=== PATIENT | female | born 1990 | race Caucasian/White ===

== ENCOUNTER 2019-08-21 07:42 | Inpatient (IN) ==
[2019-08-21] MEDS ORDERED: OXYTOCIN 30 UNITS/500 ML BAG IV PRN ×2 (07:47→07:53)
--- NOTE | 2019-08-21 07:50 | History & Physical Report ---
Date of Service August 21, 2019 Assessment & Plan (1) Elective induction of labor planned: 28 yo F at 40.0 weeks here for elective induction of labor. - [place] bulb removed this morning by Dr. Phelps, pt now 4/80/-2; EFW 6-7 lbs. - Will start oxytocin @ 1mU/min and increase by 2 every 30 minutes until contractions every 2-3 minutes. - Continue to monitor for cervical change. History of Present Illness Primary Care Provider: Sweta SYasmine Alatorre is a 28 yo F ; dating parameters 40.0weeks by LMP; here for elective induction of labor; no complications this . Attended OB appointments with [facility]. Confirms intermittent contractions, confirms movement; no vaginal fluid loss or vaginal bleeding. Labor plan includes Labs (Serology 02/11/2019; CBC 08/21/2019): Blood type: A+ Antibody screen: negative Hgb: 10.0 Hct: 31.6% WBC: 6.38 Plt: 148 Rubella status: immune VDLR/RPR: nonreactive Gonorrhea: negative Chlamydia: negative HIV: negative GBS: negative HbSAg: negative Glucose tolerance test x2: negative No Hx of abnormal PAPs. Last done July 2018. Allergies Allergy/AdvReac Type Severity Reaction Status Date / Time No Known Drug Allergies Allergy Verified 08/14/19 09:32 Home Medications Home Medications Medication Instructions Recorded Confirmed Type prenat.vits,camila,olo-[id number] 1 tab PO DAILY 02/25/19 08/21/19 History ferrous sulfate [iron] 325 mg PO DAILY 08/21/19 08/21/19 History Patient History Medical History False labor after 37 completed weeks of gestation History of varicella Surgical History S/P ACL repair Family History Mother Breast cancer Social History (Updated 03/03/19 @ 12:25 by Bambi Dwyer) Preferred Language: Martiniquais Communication Ability: Effective Beliefs That Will Affect Care: None marital status: Current Living Situation: Spouse Current Living Situation Comment: [facility] Other Information That Helps Us Care for You: No Feels Safe at Home: Yes Safety Concerns: Feels Safe At This Time Smoking Status: Never smoker Hx Alcohol Use: No Hx Substance Use: No Review of Systems Constitutional: denies fever, chills, sweats, headache Respiratory: denies SOB, difficulty breathing Cardiac: denies CP, chest palpitations, chest pressure Breast: denies breast pain : denies dysuria Physical Exam Physical Exam: General: patient is alert and oriented, in NAD Cardiac: +S1/S2, no murmurs rubs or gallops Respiratory: lungs CTA b/l, anteriorly and posteriorly, no wheezes rales or rhonchi, no increased work of breathing, symmetric chest rise, no respiratory distress Abdomen: soft, NT, +bowel sounds Uterus: uterine fundus firm Lower Extremities: no LE edema or swelling, no deep calf pain, Bebe's sign negative b/l Genitourinary: Manual OB Exam: + cervical dilation 4 cm, + cervical effacement 80% and + station -2 OB Exam Monitor Tracing: + external FHT monitor used, + external uterine monitor used, + category I and + normal FHT variability Results & Data Vital Signs (Past 12 Hours) Vital Signs Pulse BP 08/21/19 07:44 88 116/72 Laboratory Results Laboratory Results - last 24 hr 08/21/19 07:58 WBC 6.38 RBC 3.65 L Hgb 10.0 L Hct 31.6 L MCV 86.6 MCH 27.4 MCHC Pending RDW Std Deviation 56.2 H RDW Coeff of Sushil 18.0 H Plt Count 148 MPV 11.7 H Medications Administered Current Medications Lactated Ringer's (Lr) 1,000 mls @ 125 mls/hr IV .Q8H PRN; Protocol PRN Reason: L&D Protocol Stop: 08/23/19 07:46 Last Admin: 08/21/19 08:04 Dose: 125 mls/hr Documented by: Oxytocin (Pitocin) 30 units in 500 mls @ 333.333 mls/hr IV .Q1H30M PRN; Protocol PRN Reason: Bleeding Control Stop: 09/20/19 07:46 Oxytocin (Pitocin) 30 units in 500 mls @ 1 mls/hr IV .Q24H PRN; Protocol PRN Reason: Labor Induction/Augmentation Stop: 08/23/19 07:52 Monitoring External Monitor HR 140s with good variability Supervising Physician Co-Signing Physician Notes Resident Physician Supervision Note: I interviewed and examined the patient. Discussed with Dr. Zuniga and agree with findings and plan as documented in the note. Any exceptions or clarificati ons are listed here: I have seen this patient in office yesterday and wanted elective induction. exam above done by Dr. Phelps. pitocin induction. Documented By: Slime Woodard MD, FACOG Coding Level of Care Code None Diagnoses Elective induction of labor planned
[2019-08-21] MEDS: LACTATED RINGER'S 1,000 ML IV PRN ×3 (08:04→19:14)
[2019-08-21 08:11] LABS: Hematocrit (blood only) 31.6 % (37-47); Mean Corpuscular Hemoglobin 27.4 pg (25-34); Mean Corpuscular Volume 86.6 fL (80-100); Mean Platelet Volume 11.7 fL (7.4-10.4); Platelet Count 148 K/uL (130-400); RDW Standard Deviation 56.2 fL (36.4-46.3); Red Blood Count 3.65 M/uL (4.2-5.4); White Blood Count 6.38 K/uL (4.8-10.8)
[2019-08-21 09:19] LABS: Mean Corpuscular Hgb Conc 31.6 g/dL (32-36)
--- NOTE | 2019-08-21 10:28 | Labor Progress Brief Note ---
Date of Service August 21, 2019 Subjective Reason For Note: Routine Evaluation Pt here for elective induction. Pitocin infusing. Does not have pain. Assessment & Plan (1) Elective induction of labor planned: cont with pitocin, will see how arom augments labor pattern. fhts categ 1 Physical Exam Constitutional: WD/WN, vitals as above Neurologic: grossly normal Psychiatric: A+Ox3, euthymic affect Genitourinary: Manual OB Exam: + cervical dilation 4 cm, + cervical effacement 50%, + station -2 and + amniotic fluid (AROM) clear OB Exam Monitor Tracing: + external FHT monitor used (135 mod variability, reactive), + external uterine monitor used (q4-5 pit at 5), + category I and + normal FHT variability Results & Data Vital Signs (Past 12 Hours) Vital Signs Temp Pulse Resp BP 08/21/19 09:56 74 100/63 08/21/19 08:41 87 99/62 L 08/21/19 08:08 97.7 F 88 20 116/72 08/21/19 07:44 88 116/72 Coding Level of Care Code None Diagnoses Elective induction of labor planned
[2019-08-21] MEDS ORDERED: fentaNYL citrate 100 MCG/2 ML VIAL ONE (12:42)
[2019-08-21] MEDS ORDERED: ePHEDrine sulfate 50 MG/ML AMP ONE (12:42)
[2019-08-21] MEDS ORDERED: BUPIVACAINE 0.25% 30 ML VIAL ONE (12:42)
[2019-08-21] MEDS ORDERED: fentaNYL 2MCG/ML ROPIV 1.25MG/ML 100 ML BAG EPI ONE (12:43)
[2019-08-21] MEDS ORDERED: DiphenhydrAMINE HCL 50 MG/ML VIAL IV PRN (12:54)
[2019-08-21] MEDS ORDERED: NALBUPHINE HCL INJ 10 MG/ML AMP IV PRN (12:54)
[2019-08-21] MEDS ORDERED: NALOXONE HCL 1 MG in SODIUM CHLORIDE 0.9% 1000ML 1,000 ML IV PRN (12:54)
[2019-08-21] MEDS ORDERED: ePHEDrine sulfate 50 MG/ML AMP IV PRN (12:54)
[2019-08-21] MEDS ORDERED: ONDANSETRON INJ 2 MG/ML 2 ML VIAL IV PRN (12:54)
[2019-08-21] MEDS ORDERED: NALOXONE HCL 0.4 MG/1 ML VIAL/CARP IV PRN (12:54)
--- NOTE | 2019-08-21 13:00 | Anesthesiology Consultation ---
Date of Service August 21, 2019 Assessment & Plan Chart Review Chart Review: Patient NOT seen in Pre Admission Testing and Acceptable Risk for Labor Epidural Consults Requested none ASA ASA2 Proposed Anesthesia Anesthesia Type: Labor Epidural and CSE Risk / Benefits Reviewed With: PT / POA / Parent / Guardian, Accepts Plan and Informed Consent Obtained History Height/Weight Height: 5 ft Weight: 67.132 kg Allergies Allergy/AdvReac Type Severity Reaction Status Date / Time No Known Drug Allergies Allergy Verified 08/14/19 09:32 Medications Home Medications Medication Instructions Recorded Confirmed Last Taken prenat.vits,camila,[id number] 1 tab PO DAILY 02/25/19 08/21/19 08/21/19 06:00 ferrous sulfate [iron] 325 mg PO DAILY 08/21/19 08/21/19 08/21/19 06:00 Active Medications Generic Name Dose Route Start Last Admin Trade Name Freq PRN Reason Stop Dose Admin Lactated Ringer's 1,000 mls @ 125 mls/hr 08/21/19 07:47 08/21/19 12:35 Lr IV 08/23/19 07:46 999 mls/hr .Q8H PRN Infusion L&D Protocol Protocol Oxytocin 30 units in 500 mls @ 13 mls/hr 08/21/19 07:53 08/21/19 12:15 Pitocin IV 08/23/19 07:52 0.78 units/hr .Q24H PRN 13 mls/hr Labor Induction/Augmentation Titration Protocol 0.78 UNITS/HR NPO Date Last Intake of Fluids: 08/21/19 Time Last Intake of Fluids: 11:00 Date Last Intake of Solids: 08/21/19 Time Last Intake of Solids: 08:00 Past Medical History Medical History False labor after 37 completed weeks of gestation History of varicella Exercise / Class Metabolic Activity II 4-5 Yardwork/Stairs/Walk up hill Past Family History Family History Mother Breast cancer Past Surgical History Surgical History S/P ACL repair Past Anesthesia History No Hx of Anesthesia Complications and No Family Hx of Anesthesia Complications History of PONV No Hx of PONV and No Hx of Motion Sickness Social History Smoking Status: Never smoker Hx Alcohol Use: No Hx Substance Use: No Review of Systems no chest pain or sob Physical Exam Vital Signs Last Vital Signs Temp 36.9 C 08/21/19 11:21 Pulse 95 H 08/21/19 12:54 Resp 20 08/21/19 11:21 BP 120/74 08/21/19 12:49 Pulse Ox 100 08/21/19 12:54 ENMT Mouth: no TMJ abnormality Thyromental Distance: > or= 3.5 Finger Breadths Mallampati Class: II Neck normal visual inspection Respiratory normal respiratory effort Auscultation: lungs clear to auscultation bilaterally Cardiovascular Rate/Rhythm: regular rate and regular rhythm Musculoskeletal Spine: normal cervical ROM Neurologic moves all extremities Psychiatric Orientation: alert and oriented x 3 Testing Laboratory Results 08/21/19 07:58
[2019-08-21] MEDS: fentaNYL 2MCG/ML ROPIV 1.25MG/ML 100 ML BAG EPI PRN ×2 (16:50→19:54)
[2019-08-21] MEDS ORDERED: ACETAMINOPHEN 325 MG TAB PO PRN (19:33)
--- NOTE | 2019-08-21 19:36 | Labor Progress Brief Note ---
Date of Service August 21, 2019 Subjective Reason For Note: Routine Evaluation has some lower pressure but not rectal pressure. Assessment & Plan (1) Elective induction of labor planned: c/w pitocin, good cx change. fhts categ 1. Physical Exam Constitutional: WD/WN, vitals as above Psychiatric: A+Ox3, euthymic affect Genitourinary: Manual OB Exam: + cervical dilation (8), + cervical effacement 100% and + station 0 OB Exam Monitor Tracing: + external FHT monitor used (135 mod variability), + external uterine monitor used (q2-3), + category I and + normal FHT variability Results & Data Vital Signs (Past 12 Hours) Vital Signs Temp Pulse Resp BP Pulse Ox 08/21/19 19:33 95 H 124/71 08/21/19 19:29 106 H 93 08/21/19 19:24 112 H 97 08/21/19 19:19 100 H 100 08/21/19 19:18 107 H 127/66 08/21/19 19:14 84 100 08/21/19 19:09 89 100 08/21/19 19:04 99 H 104/67 100 08/21/19 19:01 94 H 90 08/21/19 18:59 84 100 08/21/19 18:54 82 100 08/21/19 18:51 84 93 08/21/19 18:49 76 100 08/21/19 18:48 73 104/69 08/21/19 18:44 83 100 08/21/19 18:39 75 100 08/21/19 18:34 104 H 100 08/21/19 18:33 99 H 91 08/21/19 18:29 91 H 100 08/21/19 18:25 103 H 89 L 08/21/19 18:24 106 H 99 08/21/19 18:19 82 100 08/21/19 18:17 80 102/67 08/21/19 18:14 91 H 100 08/21/19 18:09 73 100 08/21/19 18:04 70 100 08/21/19 18:02 77 99/63 L 08/21/19 17:59 93 H 100 08/21/19 17:54 76 100 08/21/19 17:49 97 H 100 08/21/19 17:47 71 96/56 L 08/21/19 17:44 74 100 01/24/20 17:39 70 99 08/21/19 17:34 68 99 08/21/19 17:33 67 102/59 L 08/21/19 17:29 77 99 08/21/19 17:24 104 H 99 08/21/19 17:19 68 97/56 L 100 08/21/19 17:14 83 100 08/21/19 17:09 75 100 08/21/19 17:04 69 99 08/21/19 17:02 85 96/54 L 08/21/19 16:59 97 H 98 08/21/19 16:54 79 99 08/21/19 16:49 95 H 100 08/21/19 16:48 78 98/57 L 08/21/19 16:44 66 99 08/21/19 16:39 83 99 08/21/19 16:34 86 100 08/21/19 16:32 72 101/57 L 08/21/19 16:29 76 100 08/21/19 16:24 69 100 08/21/19 16:19 83 104/57 L 100 08/21/19 16:14 99 H 99 08/21/19 16:09 74 100 08/21/19 16:04 94 H 99 08/21/19 16:03 74 99/55 L 08/21/19 15:59 93 H 100 08/21/19 15:54 83 100 08/21/19 15:49 94 H 100 08/21/19 15:48 88 20 113/70 08/21/19 15:44 82 100 08/21/19 15:39 94 H 100 08/21/19 15:34 93 H 100 08/21/19 15:32 83 107/61 08/21/19 15:29 79 100 08/21/19 15:24 78 100 08/21/19 15:19 80 100 08/21/19 15:17 97.9 F 84 20 105/56 L 08/21/19 15:14 73 100 08/21/19 15:09 68 100 08/21/19 15:04 71 100 08/21/19 14:59 67 100 08/21/19 14:54 65 100 08/21/19 14:49 69 99 08/21/19 14:44 77 99 08/21/19 14:39 72 100 08/21/19 14:34 88 97 08/21/19 14:33 71 20 92/55 L 08/21/19 14:29 67 97 08/21/19 14:24 62 98 08/21/19 14:19 62 98 08/21/19 14:18 66 93/51 L 08/21/19 14:14 61 98 08/21/19 14:09 75 97 08/21/19 14:04 70 98 08/21/19 14:03 74 102/57 L 08/21/19 13:59 81 98 08/21/19 13:54 77 97 08/21/19 13:49 77 98 08/21/19 13:44 84 98 08/21/19 13:39 76 97 08/21/19 13:34 83 97 08/21/19 13:32 81 20 102/56 L 08/21/19 13:31 90 181/109 H 08/21/19 13:29 72 96 08/21/19 13:24 83 97 08/21/19 13:22 82 94/53 L 08/21/19 13:19 85 97 08/21/19 13:15 81 98/61 L 08/21/19 13:14 82 104/62 99 08/21/19 13:12 98 H 114/60 08/21/19 13:10 93 H 114/63 08/21/19 13:09 98.4 F 91 H 20 100 08/21/19 12:54 95 H 100 08/21/19 12:49 79 120/74 100 08/21/19 11:21 98.4 F 75 20 112/69 08/21/19 10:43 67 106/63 08/21/19 09:56 74 100/63 08/21/19 08:41 87 99/62 L 08/21/19 08:08 97.7 F 88 20 116/72 08/21/19 07:44 88 116/72 Coding Level of Care Code None Diagnoses Elective induction of labor planned
--- NOTE | 2019-08-22 00:49 | Delivery Summary ---
Supervising Physician Co-Signing Physician Notes The patient dilated to complete and pushed to deliver a viable male infant Apgars 3, 6, 8 via over midline episiotomy. heart tones were persistently suspected to be in the 50s x 2 minutes and that is why episiotomy performed. After cephalic delivered, anterior shoulder was delivered and loose nuchal x 1 reduced. Mouth and nose bulb suctioned at perineum. Remaining shoulder and body delivered with ease with gentle downward traction. Infant was not vigorous and was pale therefore cord rapidly doubly clamped and cut and taken to radiant warmer. Placenta delivered spontaneously and intact, three- vessel cord. Hemostasis achieved with dilute pitocin and uterine massage and drainage of the bladder for approximately 100 cc under sterile conditions. Episiotomy repaired in usual fashion with 3-0 vicryl. Cervix and sulci intact. EBL 300 cc. Mother and baby stable recovery. Cord blood and cord gases obtained. Vaginal Delivery Summary Date of Service August 22, 2019
[2019-08-22] MEDS ORDERED: OXYCODONE/ACETAMINOPHEN 5mg/325mg TAB PO PRN (00:54)
[2019-08-22] MEDS ORDERED: OXYTOCIN 30 UNITS/500 ML BAG IV PRN (00:54)
[2019-08-22] MEDS ORDERED: ACETAMINOPHEN 325 MG TAB PO PRN (00:54)
[2019-08-22] MEDS ORDERED: OXYTOCIN 20 UNITS in LACTATED RINGER'S 1,000 ML IV SCH (01:00)
[2019-08-22 01:03] LABS: Base Excess Cord Venous Blood -6.3 mEq/L (-7.7-1.9); Cord Venous Blood HCO3 19 mmol/L (18.4-26.8); Cord Venous Blood PCO2 38 mmHg (30.4-57.2); Cord Venous Blood PO2 34 mmHg (14.1-43.3); Cord Venous Blood pH 7.32 (7.20-7.44)
[2019-08-22 01:11] LABS: Base Excess Cord Arterial Bld -13.4 mEq/L (-9-1.8); CO2 Cord Arterial Blood 67 mmHg (39.1-73.5); HCO3 Cord Arterial Blood 18 mmol/L (19.7-28.5); Oxygen Sat Cord Arterial Blood < 60.0 % (<60); PO2 Cord Arterial Blood 23 mmHg (4.1-31.7); pH Cord Arterial Blood 7.05 (7.1-7.38)
[2019-08-22] MEDS ORDERED: BENZOCAINE 20% AER SPR 82.5 GM CAN EXT PRN (01:21)
[2019-08-22] MEDS ORDERED: DIPHTHERIA/TETANUS/PERTUSSIS 0.5 ML SYR/VIAL IM ONE (01:21)
[2019-08-22] MEDS ORDERED: SUPERCREAM 0.870% 15 GM JAR EXT PRN (01:21)
[2019-08-22] MEDS: IBUPROFEN 600 MG TAB PO PRN ×3 (02:32→18:04)
--- NOTE | 2019-08-22 06:06 | Anesthesia Procedure Note ---
Date of Service August 22, 2019 Anesthesia Post Epidural Note Vital Signs Vital Signs: Temp Pulse Resp BP Pulse Ox 36.7 C 93 H 20 112/68 89 L 08/22/19 02:17 08/22/19 02:53 08/22/19 02:17 08/22/19 02:53 08/22/19 00:36 Pain Intensity Episiotomy/Laceration: Pain Intensity: 4 Notes Mental Status: alert / awake / arousable and participated in evaluation Nausea / Vomiting: adequately controlled Pain: adequately controlled Airway Patency, RR, SpO2: stable & adequate BP & HR: stable & adequate Hydration State: stable & adequate Neuraxial Anesthesia: was administered and sensory block is resolving Anesthetic Complications: no major complications apparent and Pt Satisfied with anesthetic care Epidural: Removed without complications and With tip intact
--- NOTE | 2019-08-22 07:35 | Obstetrical Progress Note ---
Date of Service August 22, 2019 Assessment & Plan (1) Normal delivery at term: stable, routine pp care. rh pos, . Day #:: 1 Subjective Ambulation: ambulating normally Voiding: no voiding problems Diet Tolerance:: regular diet Lochia:: Moderate Feeding Type:: breast feeding bottom sore, no other pain issues. . not much appetite yesterday. Physical Exam Constitutional WD/WN, vitals as above Respiratory normal respiratory effort, lungs clear to auscultation Cardiovascular Rate/Rhythm: regular rate and regular rhythm Gastrointestinal (Abdomen) Percussion/Palpation: abdomen soft; abdomen nontender FF at u Neurologic grossly normal Psychiatric A+Ox3, euthymic affect Results & Data Vital Signs (Past 12 Hours) Vital Signs Temp Pulse Pulse Resp BP BP Pulse Ox 08/22/19 03:00 98.4 F 92 H 92 H 18 112/68 112/68 08/22/19 02:53 93 H 112/68 08/22/19 02:17 98.1 F 102 H 20 113/72 08/22/19 02:02 97 H 111/68 08/22/19 01:47 102 H 16 117/75 08/22/19 01:32 93 H 18 116/70 08/22/19 01:17 109 H 16 120/73 08/22/19 01:02 97 H 16 117/73 08/22/19 00:47 107 H 18 113/76 08/22/19 00:36 98.2 F 110 H 20 126/76 89 L 08/22/19 00:34 116 H 98 08/22/19 00:29 114 H 99 08/22/19 00:24 105 H 100 08/22/19 00:19 111 H 98 08/22/19 00:14 138 H 97 08/22/19 00:12 151 H 92 08/22/19 00:09 123 H 97 08/22/19 00:06 128 H 92 08/22/19 00:04 135 H 97 08/22/19 00:00 20 08/21/19 23:59 145 H 96 08/21/19 23:54 123 H 98 08/21/19 23:49 141 H 98 08/21/19 23:48 126 H 124/76 08/21/19 23:44 132 H 97 08/21/19 23:39 145 H 98 08/21/19 23:37 146 H 92 08/21/19 23:34 125 H 110/61 98 08/21/19 23:30 20 08/21/19 23:29 117 H 99 08/21/19 23:25 122 H 87 L 08/21/19 23:24 123 H 98 08/21/19 23:19 120 H 108/64 99 08/21/19 23:14 140 H 98 08/21/19 23:09 136 H 98 08/21/19 23:05 98.4 F 08/21/19 23:04 139 H 98 08/21/19 23:03 117 H 110/65 08/21/19 23:00 18 08/21/19 22:59 156 H 98 08/21/19 22:54 135 H 99 08/21/19 22:49 129 H 100 08/21/19 22:48 112 H 114/66 08/21/19 22:44 145 H 98 08/21/19 22:39 130 H 98 08/21/19 22:35 130 H 117/63 08/21/19 22:34 150 H 99 08/21/19 22:30 18 08/21/19 22:29 158 H 100 08/21/19 22:24 120 H 98 08/21/19 22:19 137 H 99 08/21/19 22:17 123 H 119/62 08/21/19 22:14 139 H 99 08/21/19 22:09 155 H 100 08/21/19 22:04 136 H 121/61 100 08/21/19 22:00 18 08/21/19 21:59 131 H 100 08/21/19 21:54 123 H 100 08/21/19 21:49 81 106/67 98 08/21/19 21:44 86 98 08/21/19 21:39 90 97 08/21/19 21:34 93 H 99 08/21/19 21:32 95 H 111/68 08/21/19 21:30 18 08/21/19 21:29 94 H 100 08/21/19 21:24 105 H 100 08/21/19 21:20 98.6 F 08/21/19 21:19 102 H 98 08/21/19 21:17 95 H 107/60 08/21/19 21:14 90 98 08/21/19 21:09 94 H 99 01/24/20 21:04 90 97 08/21/19 21:03 88 109/60 08/21/19 21:00 18 08/21/19 20:59 102 H 98 08/21/19 20:54 106 H 98 08/21/19 20:49 89 99 08/21/19 20:47 101 H 105/62 08/21/19 20:44 90 99 08/21/19 20:39 87 99 08/21/19 20:34 89 99 08/21/19 20:33 86 105/63 08/21/19 20:30 18 08/21/19 20:29 86 98 08/21/19 20:24 82 99 08/21/19 20:19 93 H 99 08/21/19 20:17 90 106/59 L 08/21/19 20:14 94 H 99 08/21/19 20:12 103 H 92 08/21/19 20:09 94 H 100 08/21/19 20:04 97 H 99 08/21/19 20:03 83 113/59 L 08/21/19 20:02 91 H 88 L 08/21/19 20:00 18 08/21/19 19:59 101 H 100 08/21/19 19:54 115 H 99 08/21/19 19:49 87 100 08/21/19 19:48 83 107/65 08/21/19 19:44 89 99 08/21/19 19:39 103 H 99 08/21/19 19:34 133 H 100
[2019-08-22] MEDS: DOCUSATE SODIUM 100 MG CAP PO SCH ×2 (09:23→20:40)
[2019-08-23] MEDS: DOCUSATE SODIUM 100 MG CAP PO SCH ×2 (08:23→21:17)
[2019-08-23] MEDS: IBUPROFEN 600 MG TAB PO PRN ×4 (08:24→19:48)
--- NOTE | 2019-08-23 08:42 | Obstetrical Progress Note ---
Date of Service August 23, 2019 Assessment & Plan (1) Elective induction of labor planned: - doing well - patient desires d/c - instructions given - f/u in 6 weeks for pp check Subjective Ambulation: ambulating normally Voiding: no voiding problems Feeding Type:: bottle feeding Physical Exam Constitutional WD/WN, vitals as above Gastrointestinal (Abdomen) Fundus firm below umbilicus Musculoskeletal No deep calf tenderness Results & Data Vital Signs (Past 12 Hours) Vital Signs Temp Pulse Resp BP 08/23/19 00:35 97.5 F L 94 H 16 101/62
[2019-08-23] MEDS: HYDROCORTISONE ACETATE 25 MG SUPP PR PRN (21:24)
[2019-08-23 22:45] VITALS: O2SAT 98
--- NOTE | 2019-08-24 07:43 | Obstetrical Progress Note ---
Date of Service August 24, 2019 * Patient was initially discharged on the evening of 08/23/19. Due to nursery recommendations, she was advised to stay until the 08/24/19. Please use HPI, ROS, EXAM and Assessment and Plan from 08/23/19 for discharge information.* Supervising Physician Co-Signing Physician Notes Resident Physician Supervision Note: I was present with Dr. Sandra during the history and exam. I discussed the case with the resident and agree with the findings and plan as documented in the note. Any exceptions or clarifications are listed here: [None] Documented By: Mio Victor Jr, MD, FACOG Results & Data Vital Signs (Past 12 Hours) Vital Signs Temp Pulse Resp BP Pulse Ox 08/24/19 00:00 36.7 C 100 H 18 115/79 08/23/19 19:50 36.7 C 94 H 18 117/79 98 Resident Activity Tracking Resident Involvement: Resident Care Provided Care Provided: OB Delivery
[2019-08-24] MEDS: IBUPROFEN 600 MG TAB PO PRN ×2 (10:12→16:41)
[2019-08-24] MEDS: DOCUSATE SODIUM 100 MG CAP PO SCH (10:12)
[2019-08-24] MEDS: HYDROCORTISONE ACETATE 25 MG SUPP PR PRN ×2 (12:16→16:57)
[2019-08-24 18:47] VITALS: BP 120/74; PULSE 72; TEMP 98.2
== END 2019-08-24 18:25 | disposition home or self-care (01) | DRG 807 ==
LOC: 4S1 07:42 → 4S2 08-22 14:38

== ENCOUNTER 2021-10-16 07:38 | Inpatient (IN) ==
[2021-10-16] MEDS ORDERED: OXYTOCIN 30 UNITS/500 ML BAG IV PRN ×3 (08:39→20:53)
--- NOTE | 2021-10-16 08:58 | History & Physical Report ---
Date of Service October 16, 2021 Assessment & Plan (1) Encounter for induction of labor: Plan: admit, iv, labs. start pitocin and then arom. fhts categ 1. Admission and Anticipated Discharge Date Admission Date: October 16, 2021 History of Present Illness Chief Complaint: elective induction Primary Care Provider: Sweta Loo 30y at 40 1/7 wks ega presents to L&D for planned induction, postdates. Patient doing well. No rom, vb. +FM. No ctx PNC uncomplicated. PNL rh pos, ri, gbs neg OBH: x 1 GYNH: nl paps Allergies Allergy/AdvReac Type Severity Reaction Status Date / Time No Known Drug Allergies Allergy Verified 10/12/21 10:49 Home Medications Medication Instructions Recorded Confirmed Type prenat.vits,camila,ejn-qrvu-sjpcr 1 tab PO DAILY 02/25/19 10/12/21 History Patient History Medical History (Updated 10/16/21 @ 09:00 by Slime Woodard MD, FACOG) Elective induction of labor planned False labor after 37 completed weeks of gestation History of varicella Normal delivery at term Supervision of normal first Unfavorable cervix in term Surgical History S/P ACL repair Family History Mother Breast cancer Social History (Updated 02/27/21 @ 14:14 by Sweta Cooley) Smoking Status: Never smoker Hx Alcohol Use: No Hx Substance Use: No Preferred Language: Ghanaian Communication Ability: Effective Beliefs That Will Affect Care: None marital status: marital status details: Skip (28) [phone] Current Living Situation: Spouse Current Living Situation Comment: Skip and son, 1 dog. current occupational status: employed current occupation: [employer] at [employer] Feels Safe at Home: Yes Assistive Devices: None Review of Systems as per Subjective / HPI Physical Exam Constitutional: WD/WN, vitals as above Respiratory: normal respiratory effort, lungs clear to auscultation Cardiovascular: Rate/Rhythm: regular rate and regular rhythm Gastrointestinal (Abdomen): soft gravid nt efw 6-7# Musculoskeletal: no edema nontender calves Neurologic: grossly normal Psychiatric: A+Ox3, euthymic affect Genitourinary: Manual OB Exam: + cervical dilation 2 cm, + cervical effacement 50% and + station (anterior and med) -2 OB Exam Monitor Tracing: + external FHT monitor used, + external uterine monitor used (irreg), + category I and + normal FHT variability Results & Data ([facility]) Vital Signs (Past 12 Hours) Vital Signs Temp Pulse Resp BP 10/16/21 07:56 97.7 F 83 20 114/68 Coding Level of Care Code None Diagnoses Encounter for induction of labor Z34.90
[2021-10-16 09:09] LABS: Hemoglobin 10.3 g/dL (12.0-16.0); Mean Corpuscular Hemoglobin 28.5 pg (25-34); Mean Corpuscular Hgb Conc 32.2 g/dL (32-36); Mean Corpuscular Volume 88.6 fL (80-100); Mean Platelet Volume 11.2 fL (7.4-10.4); Platelet Count 183 K/uL (130-400); RDW Coefficient of Variation 14.9 % (11.5-14.5); RDW Standard Deviation 48.5 fL (36.4-46.3); Red Blood Count 3.61 M/uL (4.2-5.4)
[2021-10-16] MEDS: LACTATED RINGER'S 1,000 ML IV PRN ×2 (09:45→20:01)
--- NOTE | 2021-10-16 10:44 | Medical Student H&P ---
Date of Service October 16, 2021 Assessment & Plan (1) Encounter for induction of labor: Plan: Celi Maynard is a 30-year-old at 40 1/7 presenting for eIOL. - Vital signs within normal limits - Physical exam within normal limits - FHT: reactive and reassuring - Plan: * Admit to Labor and Delivery * Start IV NS * heart rate monitoring * Tocodynamometer monitoring * Start Pitocin Admission and Anticipated Discharge Date Admission Date: October 16, 2021 History of Present Illness Chief Complaint: Induction of labor Primary Care Provider: Sweta Loo Celi Maynard is a 30-year-old at 40 1/7 presenting for elective induct ion of labor, accompanied by her Skip. She reports + irregular contractions, + movement, no vaginal blood, no leakage of fluid. She states that her has been complicated only by low iron levels, for which she takes an iron supplement. Allergies Allergy/AdvReac Type Severity Reaction Status Date / Time No Known Drug Allergies Allergy Unknown Verified 10/16/21 10:24 Home Medications Medication Instructions Recorded Confirmed Type prenat.vits,camila,cuu-gfqk-[id number] 1 tab PO DAILY 10/16/21 10/16/21 History Patient History Medical History (Updated 10/16/21 @ 09:00 by Slime Woodard MD, FACOG) Elective induction of labor planned False labor after 37 completed weeks of gestation History of varicella Normal delivery at term Supervision of normal first Unfavorable cervix in term Surgical History S/P ACL repair Family History Mother Breast cancer Social History (Updated 02/27/21 @ 14:14 by Sweta Cooley) Smoking Status: Never smoker Hx Alcohol Use: No Hx Substance Use: No Preferred Language: Luxembourgish Communication Ability: Effective Staking Engineer Required: No Beliefs That Will Affect Care: None marital status: marital status details: Skip (28) [phone] Current Living Situation: Spouse Current Living Situation Comment: Skip and son, 1 dog. current occupational status: employed current occupation: [employer] at [employer] Other Information That Helps Us Care for You: No Feels Safe at Home: Yes Safety Concerns: Feels Safe At This Time Assistive Devices: None OB History - #2: miscarriage at 6-7 weeks gestation in October or November 2020 - #1: complicated by iron-deficiency anemia, delivered at 40 1/7 via IOL, >2 years ago Review of Systems - no lightheadedness, dizziness, headache - no SOB, cough, wheezing - no chest pain, palpitations - no abdominal pain, constipation, diarrhea - no dysuria - mild unilateral lower extremity edema Physical Exam Physical Exam: Appearance: no acute distress, pleasant, interactive Lungs: no increased work of breathing, clear to auscultation bilaterally CV: regular rate and rhythm, no murmurs, strong peripheral pulses, no peripheral edema Abdomen: gravid, nontender Neuro: awake and alert, grossly moves all extremities, extraocular movements grossly intact Psych: reactive affect, linear thought process, good eye contact SVE: per Dr. Woodard, dilation 2 cm, effacement 50%, station -1 at 0904 SSE: not performed Monitoring External Monitor Per Dr. Woodard: normal variability Tocodynamometer Per Dr. Woodard: irregular contractions Results & Data ([facility]) Vital Signs (Past 12 Hours) Vital Signs Temp Pulse Resp BP 10/16/21 09:48 90 110/66 10/16/21 07:56 36.5 C 83 20 114/68 Laboratory Results Per chart, GBS negative on 09/19/2021
--- NOTE | 2021-10-16 14:23 | Labor Progress Brief Note ---
Date of Service October 16, 2021 Subjective noting contractions Assessment & Plan (1) Encounter for induction of labor: Plan: arom, continue current management. fetus category one. Admission and Anticipated Discharge Date Admission Date: October 16, 2021 Physical Exam Physical Exam: cx--4/75/-2 arom--small clear toco--q 2-3, pit at 15 efm--130s wtih mod variabiltiy, accels to 160s, no decels Results & Data ([facility]) Vital Signs (Past 12 Hours) Vital Signs Temp Pulse Resp BP 10/16/21 11:33 73 100/58 L 10/16/21 09:48 90 110/66 10/16/21 07:56 36.5 C 83 20 114/68 Coding Level of Care Code None Diagnoses Encounter for induction of labor Z34.90
[2021-10-16] MEDS ORDERED: SODIUM CHLORIDE 0.9% INJ 10 ML VIAL ONE (15:11)
[2021-10-16] MEDS ORDERED: fentaNYL citrate 100 MCG/2 ML VIAL ONE (15:11)
[2021-10-16] MEDS ORDERED: ePHEDrine sulfate 50 MG/ML AMP ONE (15:11)
[2021-10-16] MEDS ORDERED: fentaNYL 2MCG/ML ROPIVACAINE 1.25MG/ML 100 ML BAG EPI ONE (15:12)
[2021-10-16] MEDS ORDERED: BUPIVACAINE 0.25% 30 ML VIAL ONE (15:12)
[2021-10-16] MEDS ORDERED: diphenhydrAMINE 50 MG/ML VIAL IV PRN (15:47)
[2021-10-16] MEDS ORDERED: ePHEDrine sulfate 50 MG/ML AMP IV PRN (15:47)
[2021-10-16] MEDS ORDERED: NALOXONE HCL 1 MG in SODIUM CHLORIDE 0.9% 1000ML 1,000 ML IV PRN (15:47)
[2021-10-16] MEDS ORDERED: NALOXONE HCL 0.4 MG/1 ML VIAL/CARP IV PRN (15:47)
[2021-10-16] MEDS ORDERED: NALBUPHINE HCL INJ 10 MG/ML AMP IV PRN (15:47)
[2021-10-16] MEDS ORDERED: ONDANSETRON INJ 2 MG/ML 2 ML VIAL IV PRN (15:47)
[2021-10-16] MEDS ORDERED: fentaNYL 2MCG/ML ROPIVACAINE 1.25MG/ML 100 ML BAG EPI PRN (15:47)
--- NOTE | 2021-10-16 15:49 | Anesthesiology Consultation ---
Date of Service October 16, 2021 Assessment & Plan Chart Review Chart Review: Patient NOT seen in Pre Admission Testing and Acceptable Risk for Labor Epidural Consults Requested none ASA ASA2 Proposed Anesthesia Anesthesia Type: Labor Epidural and CSE Risk / Benefits Reviewed With: PT / POA / Parent / Guardian, Accepts Plan and Informed Consent Obtained History Height/Weight Height: 5 ft Weight: 62.142 kg Allergies Allergy/AdvReac Type Severity Reaction Status Date / Time No Known Drug Allergies Allergy Unknown Verified 10/16/21 10:24 Medications Home Medications Medication Instructions Recorded Confirmed Last Taken prenat.vits,camila,apl-aryb-mlesh 1 tab PO DAILY 10/16/21 10/16/21 10/15/21 08:00 Active Medications Generic Name Dose Route Start Last Admin Trade Name Freq PRN Reason Stop Dose Admin Oxytocin 30 units in 500 mls @ 15 mls/hr 10/16/21 08:39 10/16/21 14:00 Pitocin IV 10/18/21 08:38 0.9 units/hr .Q24H PRN 15 mls/hr Labor Induction/Augmentation Titration Protocol 0.9 UNITS/HR Lactated Ringer's 1,000 mls @ 125 mls/hr 10/16/21 08:39 10/16/21 09:45 Lr IV 10/18/21 08:38 125 mls/hr .Q8H PRN Administration L&D Protocol Protocol NPO Date Last Intake of Fluids: 10/16/21 Time Last Intake of Fluids: 12:00 Date Last Intake of Solids: 10/15/21 Time Last Intake of Solids: 19:00 Past Medical History Medical History Elective induction of labor planned False labor after 37 completed weeks of gestation History of varicella Normal delivery at term Supervision of normal first Unfavorable cervix in term Exercise / Class Metabolic Activity II 4-5 Yardwork/Stairs/Walk up hill Past Family History Family History Mother Breast cancer Past Surgical History Surgical History S/P ACL repair Past Anesthesia History No Hx of Anesthesia Complications and No Family Hx of Anesthesia Complications History of PONV No Hx of PONV and No Hx of Motion Sickness Social History Smoking Status: Never smoker Hx Alcohol Use: No Hx Substance Use: No substance use type: does not use Review of Systems no chest pain or sob Physical Exam Vital Signs Last Vital Signs Temp 36.5 C 10/16/21 07:56 Pulse 88 10/16/21 15:44 Resp 20 10/16/21 07:56 BP 100/58 L 10/16/21 11:33 Pulse Ox 91 10/16/21 15:44 ENMT Mouth: no TMJ abnormality Thyromental Distance: > or= 3.5 Finger Breadths Mallampati Class: II Neck normal visual inspection Respiratory normal respiratory effort Auscultation: lungs clear to auscultation bilaterally Cardiovascular Rate/Rhythm: regular rate and regular rhythm Musculoskeletal Spine: normal cervical ROM Neurologic moves all extremities Psychiatric Orientation: alert and oriented x 3 Testing Laboratory Results 10/16/21 08:45
--- NOTE | 2021-10-16 17:07 | Labor Progress Brief Note ---
Date of Service October 16, 2021 Subjective pt comfortable with epidural went in to see pt due to variables Assessment & Plan (1) Encounter for induction of labor: Plan: comfortable with epidural. will see if turning off pit, position change improves categ 2 tracing. then plan restart pit. can consider iupc and amnioinfusion to help variables if they persist. nursing aware. Admission and Anticipated Discharge Date Admission Date: October 16, 2021 Physical Exam Constitutional: WD/WN, vitals as above Genitourinary: Manual OB Exam: + cervical dilation 4 cm, + cervical effacement 80% and + station -2 OB Exam Monitor Tracing: + external FHT monitor used (variable decels, tried pos change. pit ultimately turned off), + external uterine monitor used (q2 ), + category II, + normal FHT variability and + variable decelerations Results & Data ([facility]) Vital Signs (Past 12 Hours) Vital Signs Temp Pulse Resp BP Pulse Ox 10/16/21 16:59 81 99 10/16/21 16:54 69 100 10/16/21 16:52 76 93/52 L 10/16/21 16:49 80 100 10/16/21 16:44 79 99 10/16/21 16:40 84 109/62 10/16/21 16:39 85 100 10/16/21 16:36 73 98/57 L 10/16/21 16:34 75 99 10/16/21 16:29 80 99 10/16/21 16:24 87 99 10/16/21 16:19 97.5 F L 85 20 100 10/16/21 16:17 77 97/53 L 10/16/21 16:16 68 99/57 L 10/16/21 16:14 73 100 10/16/21 16:12 73 85/47 L 10/16/21 16:09 74 98 10/16/21 16:04 84 99/60 L 99 10/16/21 16:02 80 100/60 10/16/21 16:00 75 104/61 10/16/21 15:59 82 100 10/16/21 15:54 84 100 10/16/21 15:49 91 H 100 10/16/21 15:44 88 91 10/16/21 15:43 85 100 10/16/21 11:33 73 100/58 L 10/16/21 09:48 90 110/66 10/16/21 07:56 97.7 F 83 20 114/68 Coding Level of Care Code None Diagnoses Encounter for induction of labor Z34.90
--- NOTE | 2021-10-16 20:32 | Delivery Summary ---
Vaginal Delivery Summary Date of Service October 16, 2021 Vaginal Delivery Summary The patient dilated to complete and pushed to deliver a viable male Apgars 8 and 9 via over intact perineum. Mouth and nose bulb suctioned at perineum. Shoulders and body delivered with ease. Infant was crying at . Cord clamped at 20 seconds of life and infant to maternal abdomen where the cord was then doubly clamped and cut. Placenta delivered spontaneously and intact, three-vessel cord. Hemostasis achieved with dilute pitocin and uterine massage and drainage of the bladder for approximately 25 cc under sterile conditions. Cervix and sulci intact. EBL 300 cc. Mother and baby stable in recovery. [facility] Vaginal Delivery Charge Delivery Type Details:
[2021-10-16] MEDS ORDERED: ACETAMINOPHEN 325 MG TAB PO PRN (20:53)
[2021-10-16] MEDS ORDERED: HYDROCORTISONE ACETATE 25 MG SUPP PR PRN (20:53)
[2021-10-16] MEDS ORDERED: OXYTOCIN 20 UNITS in LACTATED RINGER'S 1,000 ML IV SCH (20:53)
[2021-10-16] MEDS ORDERED: DIPHTHERIA/TETANUS/PERTUSSIS 0.5 ML SYR/VIAL IM ONE (20:53)
[2021-10-16] MEDS ORDERED: BENZOCAINE 20% AER SPR 82.5 GM CAN EXT PRN (20:53)
[2021-10-16] MEDS ORDERED: oxyCODONE/ACETAMINOPHEN 5mg/325mg TAB PO PRN (20:53)
[2021-10-17] MEDS: DOCUSATE SODIUM 100 MG CAP PO SCH ×2 (00:52→09:12)
[2021-10-17] MEDS: IBUPROFEN 600 MG TAB PO PRN ×3 (06:21→16:12)
--- NOTE | 2021-10-17 07:19 | Obstetrical Progress Note ---
Date of Service <Ayaka Cerrato MD - Last Filed: 10/17/21 07:19> October 17, 2021 Assessment & Plan <Ayaka Cerrato MD - Last Filed: 10/17/21 07:19> (1) Encounter for care and examination after delivery: PPD 1: stable, routine management * patient voiding and ambulating without difficulty * pain well controlled on analgesia * tolerating regular diet * bottle feeding * anticipate d/c today evening vs. tomorrow * 6-week OB outpatient follow-up <Slime Woodard MD, FACOG - Last Filed: 10/17/21 08:12> (1) Encounter for care and examination after delivery: Subjective <Ayaka Cerrato MD - Last Filed: 10/17/21 07:19> Celi is a 30 y/o female who is now PPD #1 following spontaneous vaginal delivery at 39.4 weeks. Reports feeling well overall this morning. Moderate 6/10 cramping pain well managed on analgesics. Voiding well. Tolerating meals well and able to ambulate on her own. Lochia is improved this morning. Bottle feeding. Review of Systems Denies fever, chills, sweats Denies shortness of breath, difficulty breathing, chest pain, palpitations, chest pressure. Denies breast pain. Denies dysuria. Denies headache or changes in vision Review of Systems All systems reviewed & are unremarkable except as noted in HPI & below Physical Exam <Ayaka Cerrato MD - Last Filed: 10/17/21 07:19> General: Alert, oriented. No acute distress. Cardiac: Regular rate and rhythm, no murmurs/rubs/gallops. Respiratory: Clear to auscultation bilaterally a/p, no wheezes/rales/rhonchi. No increased work of breathing. Symmetrical chest rise. No respiratory distress. Abdomen: Soft, nontender, nondistended. Bowel sounds present. Uterus: Uterine fundus firm, palpable 1 cm above the umbilicus. Lower Extremities: No lower extremity edema or swelling. No deep calf pain. Bebe's negative bilaterally.. Results & Data ([facility]) <Ayaka Cerrato MD - Last Filed: 10/17/21 07:19> Vital Signs (Past 12 Hours) Vital Signs Temp Pulse Pulse Resp BP BP Pulse Ox 10/17/21 03:55 36.5 C 77 20 99/61 L 100 10/16/21 23:15 37.4 C 79 20 111/69 99 10/16/21 22:41 83 98/53 L 10/16/21 22:31 86 97/55 L 10/16/21 22:30 18 10/16/21 22:21 102/62 10/16/21 22:11 99 H 97/58 L 10/16/21 22:01 102 H 101/56 L 10/16/21 22:00 18 10/16/21 21:51 89 104/55 L 10/16/21 21:41 97 H 104/59 L 10/16/21 21:31 111 H 110/53 L 10/16/21 21:30 18 10/16/21 21:21 111 H 109/65 10/16/21 21:15 18 10/16/21 21:11 99 H 105/62 10/16/21 21:01 106 H 114/68 10/16/21 21:00 18 10/16/21 20:51 126 H 113/66 10/16/21 20:45 18 10/16/21 20:41 117 H 109/67 10/16/21 20:30 36.4 C L 139 H 18 113/68 10/16/21 20:24 119 H 99 10/16/21 20:21 165 H 92 10/16/21 20:19 142 H 100 10/16/21 20:14 112 H 100 10/16/21 20:09 134 H 94 10/16/21 20:04 121 H 100 10/16/21 20:00 18 10/16/21 19:59 103 H 99 10/16/21 19:58 112 H 91 10/16/21 19:54 106 H 100 10/16/21 19:52 113 H 104/56 L 10/16/21 19:49 122 H 100 10/16/21 19:44 101 H 100 10/16/21 19:39 107 H 100 10/16/21 19:37 112 H 103/65 10/16/21 19:34 115 H 100 10/16/21 19:30 18 10/16/21 19:29 100 H 100 10/16/21 19:24 89 100 10/16/21 19:22 102 H 108/68 10/16/21 19:19 96 H 100 <Slime Woodard MD, FACOG - Last Filed: 10/17/21 08:12> Co-Signing Physician Notes Resident Physician Supervision Note: I was present with Dr. Cerrato during the history and exam. I discussed the case with the resident and agree with the findings and plan as documented in the note. Any exceptions or clarifications are listed here: doing well this am. voiding, ambul, eating. pain well controlled with pain meds. bottle feeding. abd soft ff 1 down nt. nt calves. desires dc home later today if baby able to be dc'd. instructions reviewed. plan 6wk pp check. notes concern of hypospadias of baby, peds to see baby and reassured pt they will talk to her about their findings. Documented By: Slime Woodard MD, FACOG Resident Activity Tracking <Ayaka Cerrato MD - Last Filed: 10/17/21 07:19> Resident Involvement: Resident Care Provided Care Provided: OB Delivery
--- NOTE | 2021-10-17 07:23 | Anesthesia Procedure Note ---
Date of Service October 17, 2021 Anesthesia Post Epidural Note Vital Signs Vital Signs: Temp Pulse Resp BP Pulse Ox 36.5 C 77 20 99/61 L 100 10/17/21 03:55 10/17/21 03:55 10/17/21 03:55 10/17/21 03:55 10/17/21 03:55 Pain Intensity Bilateral Abdomen: Pain Intensity: 4 Notes Mental Status: alert / awake / arousable and participated in evaluation Patient Amnestic to Procedure: No Nausea / Vomiting: adequately controlled Pain: adequately controlled Airway Patency, RR, SpO2: stable & adequate BP & HR: stable & adequate Hydration State: stable & adequate Neuraxial Anesthesia: was administered and sensory block resolved Anesthetic Complications: no major complications apparent and Pt Satisfied with anesthetic care Epidural: Removed without complications and With tip intact
[2021-10-17] MEDS ORDERED: PRENATAL VITAMIN 1 TAB PO SCH (08:00)
[2021-10-17 16:33] VITALS: O2SAT 100
[2021-10-17 19:32] VITALS: BP 99/66; PULSE 80; TEMP 98.6
== END 2021-10-17 21:25 | disposition home or self-care (01) | DRG 807 ==
LOC: 4S1 07:38 → 4E2 23:28